=== PATIENT | male | born 2000 | race Caucasian/White ===

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

== ENCOUNTER 2022-04-18 10:08 | Emergency (ER) | payer MEDICAID, OTHER ==
[~2022-04-18] VITALS: Ht 188 cm; Wt 79.0 kg
[~2022-04-18 10:08] MED LIST: ONDA4TAB12 PO
[2022-04-18 10:25] VITALS: BP 120/68
[2022-04-18] MEDS ORDERED: amox tr/potassium clavulanate 875/125mg TAB PO ONE (10:40)
[2022-04-18] MEDS ORDERED: AMOX-117 PO (10:40)
== END 2022-04-18 11:00 | disposition home or self-care (01) ==
LOC: ER 10:09
DX: K04.7 Periapical abscess without sinus (principal); Z79.899 Other long term (current) drug therapy
CPT/HCPCS: 99283